=== PATIENT | male | born 1965 ===

== ENCOUNTER → 2024-12-01 11:17 | Outpatient (REF) | payer OTHER, SELFPAY | LOC: DHSLP 11:17 | PROVIDERS: ATTENDING PHYSICIAN Pediatrics Pediatric Pulmonology; FAMILY PHYSICIAN Family Medicine | DX: G47.33 Obstructive sleep apnea (adult) (pediatric) (principal); G47.52 REM sleep behavior disorder | CPT/HCPCS: 95810 ==